=== PATIENT | male | born 1970 | race African-American/Black ===

== ENCOUNTER 2018-01-01 02:28 | Emergency (ER) | payer OTHER ==
[2018-01-01] MEDS ORDERED: DIPHTH,PERTUSS(ACELL),TET 0.5 ML DISP.SYRIN IM ONE (02:48)
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
[2018-01-01] MEDS ORDERED: LIDOCAINE 1%/EPI 1:100000 (20 ML MULTI DOSE VIAL) ONE (02:52)
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
[2018-01-01 02:54] VITALS: TEMP 98.3; BMI 30.7
[2018-01-01] MEDS: LIDOCAINE HCL 2% (20ML MULTI-DOSE VIAL) NR ONE ×2 (02:54→02:56)
[2018-01-01] MEDS ORDERED: LIDOCAINE 1%/EPI 1:100000 (50 ML MULTI DOSE VIAL) INF ONE (02:54)
[2018-01-01 04:36] VITALS: BP 132/69; PULSE 88
== END 2018-01-01 04:36 | disposition home or self-care (01) ==
LOC: JER 02:28
PROC: 3E0234Z Introduction of Serum, Toxoid and Vaccine into Muscle, Percutaneous Approach (ICD-10-PCS; principal; 2018-01-01)
DX: S01.81XA Laceration without foreign body of other part of head, initial encounter (principal); W45.8XXA Other foreign body or object entering through skin, initial encounter; Y93.89 Activity, other specified; Y92.89 Other specified places as the place of occurrence of the external cause; E78.5 Hyperlipidemia, unspecified
CPT/HCPCS: 90471; 90715; 99281-25

== ENCOUNTER 2018-01-08 10:47 | Emergency (ER) | payer OTHER ==
[2018-01-08 10:56] VITALS: BP 127/75; PULSE 79; TEMP 98.4; BMI 28.3
--- NOTE | 2018-01-08 11:55 | PDOC ---
Suture Removal/Wound Check HPI - History of Present Illness Chief Complaint: Suture/Staple Removal(Here) Stated Complaint: Suture/Staple Removal (other) Time Seen by Provider: 01/08/18 11:44 History Source: Yes: Patient Exam Limitations: Yes: No Limitations Treated at: [facility] Date of Last ED visit: 12/23/17 - Previous ED Treatment Type of procedure performed on last visit: Yes: Laceration Repair Tetanus Immunization: Yes: Up to Date Past History - Past Medical History Allergies/Adverse Reactions: Allergies Allergy/AdvReac Type Severity Reaction Status Date / Time No Known Allergies Allergy Verified 01/08/18 10:56 Home Medications: Ambulatory Orders NK [No Known Home Medication] 01/01/18 COPD: No - Suicide/Smoking/Psychosocial Hx Smoking History: Unknown if ever smoked Have you smoked in the past 12 months: No Number of Cigarettes Smoked Daily: 0 Hx Alcohol Use: No Drug/Substance Use Hx: No Suture Removal/Wound Check PE - Physical Exam Laceration/Wound Check Symptoms: reports: None, Pain *Review of Systems - Review of Systems Able to Perform ROS?: Yes *Physical Exam - Vital Signs Last Vital Signs Temp Pulse Resp BP Pulse Ox 98.4 F 79 16 127/75 100 01/08/18 10:53 01/08/18 10:53 01/08/18 10:53 01/08/18 10:53 01/08/18 10:53 - Physical Exam General Appearance: Yes: Nourished, Appropriately Dressed Integumentary: positive: Normal Color, Dry, Warm, Other (left cheek to upper lip with intact sutures well healed CDI no redness) Neurologic: positive: Fully Oriented, Alert, Normal Mood/Affect, Normal Response , Motor Strength 5/5 Medical Decision Making - Medical Decision Making 01/08/18 11:54 cc: suture removal left cheek intact sutures removed without diffuculty dc inst given *DC/Admit/Observation/Transfer Diagnosis at time of Disposition: Visit for suture removal - Discharge Dispostion Disposition: HOME Condition at time of disposition: Good - Referrals Referrals: Maci Duncan MD [Primary Care Provider] - - Patient Instructions Printed Discharge Instructions: DI for Suture Removal - Post Discharge Activity
== END 2018-01-08 12:05 | disposition home or self-care (01) ==
LOC: JERFT 10:47
DX: Z48.02 Encounter for removal of sutures (principal)
CPT/HCPCS: 99281-25

== ENCOUNTER 2018-05-11 16:21 | Emergency (ER) | payer OTHER ==
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
[2018-05-11 16:38] VITALS: BP 147/97; PULSE 87; TEMP 98.6; BMI 26.4
[2018-05-11] MEDS ORDERED: predniSONE 20 MG TABLET (UD) PO ONE (17:12)
[2018-05-11] MEDS ORDERED: KETOROLAC TROMETHAMINE 60 MG/2 ML VIAL IM ONE (17:12)
[2018-05-11] MEDS ORDERED: KETOROLAC TROMETHAMINE 60 MG/2 ML VIAL ONE (17:17)
[2018-05-11] MEDS ORDERED: predniSONE 20 MG TABLET (UD) ONE (17:17)
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
== END 2018-05-11 17:44 | disposition home or self-care (01) ==
LOC: JERFT 16:21
DX: M54.89 Other dorsalgia (principal); M62.830 Muscle spasm of back; G89.29 Other chronic pain
CPT/HCPCS: 99281-25

== ENCOUNTER 2022-10-05 22:13 | Emergency (ER) | payer OTHER ==
[2022-10-05 22:26] VITALS: BP 128/74; PULSE 84; RESP 16; TEMP 98.7; BMI 31.8
== END 2022-10-05 23:05 | disposition home or self-care (01) ==
LOC: JERFT 22:13
DX: Z20.822 Contact with and (suspected) exposure to COVID-19 (principal)
CPT/HCPCS: 87635; 99283-25

== ENCOUNTER 2022-10-22 14:10 | Emergency (ER) | payer OTHER ==
[2022-10-22 14:39] VITALS: BP 144/99; PULSE 82; RESP 18; TEMP 98.1; BMI 31.1
[2022-10-22] MEDS ORDERED: ALBUTEROL SO4 2.5/IPRATROPIUM 0.5 INH SOL 3 ML VIAL.NEB. NEB SCH (15:00)
[2022-10-22] MEDS ORDERED: MAG HYDROX/AL HYDROX/SIMETH 30 ML UNIT-DOSE CUP PO ONE (15:16)
[2022-10-22] MEDS ORDERED: FAMOTIDINE 20 MG/50 ML IVPB 20 MG/50 ML MG IVPB ONE ×2 (15:16→15:36)
[2022-10-22] MEDS ORDERED: ACETAMINOPHEN 1000 MG/100 ML BAG IVPB ONE (15:16)
[2022-10-22] MEDS ORDERED: MAG HYDROX/AL HYDROX/SIMETH 30 ML UNIT-DOSE CUP ONE (15:36)
[2022-10-22] MEDS ORDERED: ACETAMINOPHEN INJECTION 100 ML IVPB ONE (15:38)
[2022-10-22 16:10] LABS: BASO % 0.9 % (0-2.0); EOS % 1.6 % (0-4.5); HEMATOCRIT 44.9 % (35.4-49); HEMOGLOBIN 14.5 GM/dL (11.7-16.9); LYMPH % 24.6 % (8-40); MCHC 32.2 g/dl (32.0-35.9); MEAN CELL VOLUME 80.7 fl (80-96); MEAN PLT VOLUME 9.2 fl (7.5-11.1); MONO % 11.4 % (3.8-10.2); NEUT % 61.5 % (42.8-82.8); PLATELET COUNT 161 10^3/uL (134-434); RBC 5.56 M/mm3 (4.00-5.60); RDW 14.9 % (11.9-15.9); WHITE BLOOD COUNT 4.2 K/mm3 (4.0-10.0)
[2022-10-22 16:20] LABS: POTASSIUM 3.9 mmol/L (3.5-5.1)
[2022-10-22 16:22] LABS: CALCIUM 9.8 mg/dL (8.5-10.1)
[2022-10-22 16:23] LABS: BLOOD UREA NITROGEN 15.2 mg/dL (7-18)
[2022-10-22 16:26] LABS: CREATININE 0.9 mg/dL (0.55-1.3)
[2022-10-22 16:27] LABS: BILIRUBIN,TOTAL 0.7 mg/dL (0.2-1); TOT PROT 7.1 g/dl (6.4-8.2)
[2022-10-22 16:30] LABS: THROAT:GRP A STREP NOT DETECTED (NOTDETECTED)
== END 2022-10-22 17:51 | disposition home or self-care (01) ==
LOC: JER 14:10
PROC: 3E033GC Introduction of Other Therapeutic Substance into Peripheral Vein, Percutaneous Approach (ICD-10-PCS; principal; 2022-10-22)
PROC: 3E033NZ Introduction of Analgesics, Hypnotics, Sedatives into Peripheral Vein, Percutaneous Approach (ICD-10-PCS; 2022-10-22)
DX: R06.02 Shortness of breath (principal); R07.0 Pain in throat; R10.13 Epigastric pain; Z20.822 Contact with and (suspected) exposure to COVID-19
CPT/HCPCS: 0241U-QW; 36415; 71046-TC-FY; 80053; 84484; 85025; 87651; 93005; 93010; 99285-25

== ENCOUNTER 2022-12-07 05:11 | Emergency (ER) | payer OTHER ==
[2022-12-07 05:20] VITALS: BP 157/104; PULSE 86; RESP 18; TEMP 98.6; BMI 31.8
[2022-12-07] MEDS ORDERED: ALBUTEROL SO4 2.5/IPRATROPIUM 0.5 INH SOL 3 ML VIAL.NEB. NEB ONE ×2 (05:27)
[2022-12-07] MEDS ORDERED: predniSONE 20 MG TABLET (UD) PO ONE (05:47)
[2022-12-07] MEDS ORDERED: predniSONE 20 MG TABLET (UD) ONE (05:49)
== END 2022-12-07 06:02 | disposition home or self-care (01) ==
LOC: FER 05:11
PROC: 3E0F7GC Introduction of Other Therapeutic Substance into Respiratory Tract, Via Natural or Artificial Opening (ICD-10-PCS; principal; 2022-12-07)
DX: R06.02 Shortness of breath (principal); R09.81 Nasal congestion; R05.9 Cough, unspecified; J20.9 Acute bronchitis, unspecified
CPT/HCPCS: 99283-25